=== PATIENT | female | born 1955 | race Caucasian/White ===

== ENCOUNTER 2017-03-16 21:44 | Emergency (ER) | payer OTHER ==
[~2017-03-16] VITALS: Ht 165.1 cm; Wt 190.5 kg
[~2017-03-16 21:44] MED LIST: ACID REDUCER20 MG PO; ALBUTEROL SULFAT4 M1 PO; ALTOPREV40 MG PO; AMITRIPTYLINE H25 MG PO; CALCITRIOL0.25 MCG PO; FISH OIL 1,0001 EAC4 PO; FOLIC ACID1 MG PO; GLYBURIDE5 MG PO; HYDRALAZINE HCL25 MG PO; HYDROCODON-ACE1 EACH PO; JANUVIA100 MG PO; LANTUS100 UNITS/ SUB-Q; LASIX40 MG PO; LEVOTHROID25 MCG PO; LEVOXYL200 MCG PO; NOVOLOG100 UNITS/ SUB-Q; NYSTATIN15 G1 TP; PULMICORT FLEX90 MCG IH; VENTOLIN HFA18 GM IH; VITAMIN D2400 UNIT PO
[2017-03-16] MEDS ORDERED: LIPITOR20 MG PO (22:52)
[2017-03-16] MEDS ORDERED: CLOBETASOL PROP15 GM TOP (22:55)
[2017-03-16] MEDS ORDERED: DULCOLAX10 MG PR (22:56)
[2017-03-16] MEDS ORDERED: LOVENOX40 MG/0.4 SUB-Q (22:57)
[2017-03-16] MEDS ORDERED: FLEET ENEMA133 ML PR (22:58)
[2017-03-16] MEDS ORDERED: FLUTICASONE PRO16 GM NAS (22:59)
[2017-03-16] MEDS ORDERED: GLUCAGON EMERGEN1 MG INJ (23:00)
[2017-03-16] MEDS ORDERED: HUMALOG KW200 UNIT/1 SUB-Q (23:04)
[2017-03-16] MEDS ORDERED: LEVOTHYROXINE200 MCG PO (23:07)
[2017-03-16] MEDS ORDERED: METOPROLOL SUCC50 MG PO (23:07)
[2017-03-16] MEDS ORDERED: MILK OF MA400 MG/5 M PO (23:09)
[2017-03-16] MEDS ORDERED: NORCO 5-325 TA1 EACH PO (23:09)
[2017-03-16] MEDS ORDERED: NOVOLOG100 UNIT/2 SUB-Q (23:10)
[2017-03-16] MEDS ORDERED: SPIRONOLACTONE50 MG PO (23:12)
--- NOTE | 2017-03-17 09:57 | NUR ---
Morbidly obese woman admitted for breathing. Non responsive. Sister, Brother-in-;aw and caregiver with her. Pt had lost in August and mother March 08. Prayer with her and with her family. She was transferred to [facility].
--- NOTE | 2017-03-18 18:45 | EKG ---
[facility] [address] [facility] [place], [place] [address] Signed Normal sinus rhythm Prolonged QT Abnormal ECG No previous ECGs available Confirmed by ROBERT POLANCO MD ([id number]) on 03/18/2017 6:45:33 PM Electronically Signed By: ROBERT POLANCO MD 03/18/17 1845 PATIENT NAME: XANDERELIANA Electrocardiogram DATE OF : 53 PHYSICIAN: ROBERT POLANCO MD REPORT #: [id number] REPORT IS CONFIDENTIAL AND NOT TO BE RELEASED WITHOUT AUTHORIZATION
== END 2017-03-17 01:25 | disposition short-term general hospital (02) ==
LOC: ED 21:44
DX: R09.2 Respiratory arrest (principal); E16.2 Hypoglycemia, unspecified; J45.909 Unspecified asthma, uncomplicated; E66.01 Morbid (severe) obesity due to excess calories; Z79.4 Long term (current) use of insulin; Z79.899 Other long term (current) drug therapy; Z88.1 Allergy status to other antibiotic agents; Z88.8 Allergy status to other drugs, medicaments and biological substances; Z87.891 Personal history of nicotine dependence
CPT/HCPCS: 31500; 31720; 36600; 71010; 80053; 82803; 83735; 83880; 84484; 85025; 85610; 85730; 93005; 93010; 94002; 94003; 94799; 96374; 96375; 99291; J0330; J2704; J2930

== ENCOUNTER 2019-06-15 07:10 | Day surgery (SDC) | payer MEDICARE, OTHER ==
[~2019-06-15] VITALS: Ht 165.1 cm; Wt 137.0 kg
[~2019-06-15 07:10] MED LIST changes: +AMLODIPINE BESY10 MG PO; +CLARITIN10 M2 PO; +CLOBETASOL PROP15 GM TOP; +DULCOLAX10 MG PR; +FERROUS SULFAT325 MG PO; +FLEET ENEMA133 ML PR; +FLUTICASONE PRO16 GM NAS; +FUROSEMIDE40 MG PO; +GLUCAGON EMERGEN1 MG INJ; +HUMALOG KW200 UNIT/1 SUB-Q; +HYDROCHLOROTHIA25 MG PO; +LEVOTHYROXINE200 MCG PO; +LIPITOR20 MG PO; +LOVENOX40 MG/0.4 SUB-Q; +METOPROLOL SUCC50 MG PO; +MILK OF MA400 MG/5 M PO; +NORCO 5-325 TA1 EACH PO; +NOVOLOG100 UNIT/2 SUB-Q; +POTASSIUM20 MEQ/15 PO; +SENOKOT8.6 MG PO; +SPIRONOLACTONE50 MG PO; +SSD25 GM TOP; +VENTOLIN HFA18 GM INH; +VICTOZA 2-0.6 MG/0.1 SUB-Q; +XARELTO20 MG PO
--- NOTE | 2019-06-15 08:09 | NUR ---
PT IS ALERT, SITTING UP IN BED. SHE HAS HAD PREVIOUS SCOPES, AND MENTIONED THAT PT WAS SCHEDULED FOR SCOPE 3 WKS AGO AND HAD TO RESCHEDULE DUE TO PREP NOT EFFECTIVE NEEDED. NO QUESTION, EXTENDED A BLESSING,WILL FOLLOW NEEDED
--- NOTE | 2019-06-15 08:51 | NUR ---
06/15/19 0851 YULIANA MAN 0845 PATIENT ARRIVED FROM ENDO ROOM WITH CPAP ON. PATIENT WAS AWAKE AND TALKING. CPAP WAS REMOVED PATIENT RR IS EVEN AND UNLABORED. PATIENT IS COMPLAINING OF DISCOMFORT IN HER ABDOMEN. PATIENT HAS BEEN BURPING AND HAS BEEN ENCOURAGED TO PASS GAS. STOMACH DOES FEEL SLIGHTLY DISTENDED. NO COMPLAINTS OF NAUSEA AT THIS TIME.
--- NOTE | 2019-06-15 15:36 | OR ---
[facility] [address] [place], [place] [address] Signed DATE OF OPERATION: 06/15/2019 SURGEON: Joel Harden MD PREOPERATIVE DIAGNOSES: 1. Personal history of multiple colonic polyps. 2. Tattoo at 40 cm. 3. Internal hemorrhoids. 4. Possible sigmoid diverticulosis. 5. Father, sister, and brother all with colonic polyps. 6. Maternal great-grandfather and first cousin with colon cancer. 7. Pelvic radiation for uterine cancer. POSTOPERATIVE DIAGNOSES: 1. 4 mm polyp at hepatic flexure (90 cm). 2. Indurated area at 20 cm (tattoo) with history of radiation. 3. Minimal internal hemorrhoids. PROCEDURE: Colonoscopy with hot biopsy and injection of tattoo at 20 cm. ESTIMATED BLOOD LOSS: None. INDICATIONS: Kiya is a 63-year-old morbidly obese patient with a height of 5 feet 5 inches and a weight of 307 pounds. Kiya has been to us several times now for history of her colonic polyps. She had a large polyp removed at 40 cm and there is a tattoo at that location. We know she has some internal hemorrhoids. She has a strong family history of colonic polyps and colon cancer. There was a question whether or not she has had sigmoid diverticulosis. We have not seen that recently. Since I have seen her last, she was diagnosed with uterine cancer. Due to her body mass index, she was not a candidate for surgery. She, therefore, had pelvic radiation and brachytherapy. In the office, I met with Kiya and her friend. In the meantime, her has . I gave her a pamphlet on colonoscopy. We reviewed the nature of the test along with its risks including, but not limited to, gas bloating, crampy abdominal pain, bleeding, perforation requiring surgery, and missed diagnosis. We also reviewed the written instructions for the bowel prep. We also reviewed her long list of medical issues and medications along with her high BMI. As always, we have Kiya undergo monitored anesthesia care. She does wear her CPAP at night. She did bring that with her today Electronically Signed By: JOEL HARDEN MD 06/15/19 1536 PATIENT NAME: KIYA TERRELL [facility] OPERATIVE REPORT DATE OF : 53 REPORT #: [id number] PHYSICIAN: JOEL HARDEN MD PCP: ZHANG GAFFNEY REPORT IS CONFIDENTIAL AND NOT TO BE RELEASED WITHOUT AUTHORIZATION [facility] [address] [place], [place] [address] Signed and we did utilize that during the procedure. She had expressed her understanding and wished to proceed. DESCRIPTION OF PROCEDURE: Kiya was taken into our endoscopy suite and placed in a left lateral decubitus position. She was given IV sedation with propofol per our nurse back tender fourdrinier. Her CPAP mask and machine were utilized during the case. A digital rectal exam was performed and this was unremarkable. The adult colonoscope was introduced and advanced all the way up to the cecum under direct visualization of the camera without difficulty. Her prep was average. There were a couple of areas of liquid particulate stool matter. Much of that was irrigated and suctioned out. The scope had been slowly withdrawn. We were in what we thought might be the hepatic flexure, although it could have been the splenic flexure as well. It was measuring 90 cm from the anal verge. There was just a tiny 4 mm polyp, which we removed with the help of hot biopsy forceps. We could easily see her tattoo back at 40 cm. No evidence of any recurrent polyp in that area. We did not see any diverticula on this occasion. At 20 cm, she has a somewhat flat, indurated, very woody area. It is reminiscent of radiation therapy. There was a polypoid area on the one side. We went ahead and took a hot biopsy of this entire area and cauterized it and then placed a tattoo just on the distal side of it. It measured 20 cm from the anal verge. This was in her sigmoid colon. The rectum itself was unremarkable. Upon retroflexion of the scope, she does have just minimal internal hemorrhoid tissue. The gas was then suctioned out and the colonoscope removed. Kiya tolerated the procedure quite well. RECOMMENDATIONS: I will see Kiya back in my office in 7 to 14 days to review her results. She will resume the Xarelto in 1 week. No aspirin or NSAIDs for 1 week. She can resume her other chronic medications today. Joel Harden MD ALB/MODL /[id number] cc: GURMEET Ortiz Electronically Signed By: JOEL HARDEN MD 06/15/19 1536 PATIENT NAME: KIYA TERRELL [facility] OPERATIVE REPORT DATE OF : 53 REPORT #: [id number] PHYSICIAN: JOEL HARDEN MD PCP: ZHAGN GAFFNEY REPORT IS CONFIDENTIAL AND NOT TO BE RELEASED WITHOUT AUTHORIZATION [facility] [address] [place], [place] [address] Signed Samson Heard MD [place] MD Rosi Mixon MD Fadi H Akoum, MD Copies: ZHANG GAFFNEY ANDREW L MD AKOUM, FADI H MD ~ Electronically Signed By: JOEL HARDEN MD 06/15/19 1536 PATIENT NAME: KIYA TERRELL OPERATIVE REPORT DATE OF : 53 REPORT #: [id number] PHYSICIAN: JOEL HARDEN MD PCP: ZHANG GAFFNEY REPORT IS CONFIDENTIAL AND NOT TO BE RELEASED WITHOUT AUTHORIZATION
--- NOTE | 2019-06-16 15:15 | PATH ---
[facility] [address] [place], [place] [address] Signed SPECIMEN(S): A HEPATIC FLEXURE POLYP SPECIMEN(S): B COLON POLYP AT 20CM SPECIMEN SOURCE: A. HEPATIC FLEXURE POLYP B. COLON POLYP AT 20CM CLINICAL HISTORY: History polyps, diverticulosis, pelvic radiation for uterine CA. Postop: Internal hemorrhoids, polyp. MICROSCOPIC DESCRIPTION: Histologic sections of all submitted blocks are examined by light microscopy. These findings, together with the gross examination, support the pathologic diagnosis. FINAL PATHOLOGIC DIAGNOSIS: A. Mucosa, hepatic flexure, biopsy: - Hyperplastic polyp. B. Mucosa, colon at 20 cm, biopsy: - Hyperplastic polyp. LJA:cml:C2NR GROSS DESCRIPTION: Two specimens are received in two containers, labeled "NG." A. The specimen, labeled "NG, hepatic flexure polyp," is received in formalin and consists of nine pink-mathews soft tissue fragment(s) that measure 0.1-0.3 cm in greatest dimension. The specimen is entirely submitted in cassette (A1). B. The specimen, labeled "NG, colon polyp at 20 cm," is received in formalin and consists of two pink-mathews soft tissue fragment(s) that measure 0.2-0.3 cm in greatest dimension. The specimen is entirely submitted in cassette (B1). JS (under the direct supervision of a pathologist) The Gross Description was prepared using a voice recognition system. The report was reviewed for accuracy; however, sound-alike word errors, addition and/or deletions may occur. If there is any question about this report, please contact Client Services. PERFORMING LABORATORY: The technical component was performed by [facility], [address] [place] [id number] ([employer]: Aminta Garsia MD; CLIA# [id number]). PATIENT NAME: ELIANA TERRELL PATHOLOGY DATE OF : 53 REPORT #: [id number] PHYSICIAN: [facility] PCP: ZHANG GAFFNEY REPORT IS CONFIDENTIAL AND NOT TO BE RELEASED WITHOUT AUTHORIZATION [facility] [address] [place], [place] [address] Signed Professional interpretation was performed by [facility], [address] [address] ([employer]: Barrie Garcia MD; CLIA# [id number]). Diagnostician: Barrie Garcia MD Pathologist Electronically Signed 06/16/2019 Copies: ~ PATIENT NAME: ELIANA TERRELL PATHOLOGY DATE OF : 53 REPORT #: [id number] PHYSICIAN: [facility] PCP: ZHANG GAFFNEY REPORT IS CONFIDENTIAL AND NOT TO BE RELEASED WITHOUT AUTHORIZATION
== END 2019-06-15 09:35 | disposition home or self-care (01) ==
LOC: OPS 07:10 → DS 07:10 → OPS 08:30
PROVIDERS: Colon & Rectal Surgery
PROC: 0DBE8ZZ Excision of Large Intestine, Via Natural or Artificial Opening Endoscopic (ICD-10-PCS; 2019-06-15)
PROC: 0DBL8ZZ Excision of Transverse Colon, Via Natural or Artificial Opening Endoscopic (ICD-10-PCS; principal; 2019-06-15 08:30)
DX: Z12.11 Encounter for screening for malignant neoplasm of colon (principal); K63.5 Polyp of colon; K64.8 Other hemorrhoids; I11.0 Hypertensive heart disease with heart failure; I50.9 Heart failure, unspecified; J45.909 Unspecified asthma, uncomplicated; G47.33 Obstructive sleep apnea (adult) (pediatric); E66.01 Morbid (severe) obesity due to excess calories; E78.5 Hyperlipidemia, unspecified; F17.210 Nicotine dependence, cigarettes, uncomplicated; Z86.010 Personal history of colon polyps; Z80.0 Family history of malignant neoplasm of digestive organs; Z83.71 Family history of colonic polyps; Z92.3 Personal history of irradiation; Z98.890 Other specified postprocedural states; Z79.82 Long term (current) use of aspirin; Z88.1 Allergy status to other antibiotic agents; Z79.899 Other long term (current) drug therapy; Z68.43 Body mass index [BMI] 50.0-59.9, adult
CPT/HCPCS: J2704; J7120

== ENCOUNTER 2021-02-21 12:13 | Emergency (ER) | payer MEDICARE, OTHER ==
[~2021-02-21] VITALS: Ht 165.1 cm; Wt 134.7 kg
--- NOTE | 2021-02-21 18:34 | EKG ---
[facility] [address] [facility] [place] [address] Signed Normal sinus rhythm Cannot rule out Anterior infarct (cited on or before 19-APR-2019) Abnormal ECG When compared with ECG of 19-APR-2019 11:41, Criteria for Inferior infarct are no longer present Questionable change in initial forces of Lateral leads Confirmed by SUNNI ELISE MD ([id number]) on 02/21/2021 6:33:46 PM Electronically Signed By: SUNNI ELISE MD 02/21/21 1834 PATIENT NAME: ELIANA TERRELLPATRICIA Electrocardiogram DATE OF : 53 PHYSICIAN: SUNNI ELISE MD REPORT #: [id number] REPORT IS CONFIDENTIAL AND NOT TO BE RELEASED WITHOUT AUTHORIZATION
== END 2021-02-22 01:54 | disposition home or self-care (01) ==
LOC: ED 12:13
DX: I11.0 Hypertensive heart disease with heart failure (principal); I50.30 Unspecified diastolic (congestive) heart failure; K21.9 Gastro-esophageal reflux disease without esophagitis; J45.909 Unspecified asthma, uncomplicated; E11.9 Type 2 diabetes mellitus without complications; E66.9 Obesity, unspecified; Z87.891 Personal history of nicotine dependence; Z88.6 Allergy status to analgesic agent; Z88.1 Allergy status to other antibiotic agents; Z88.8 Allergy status to other drugs, medicaments and biological substances; Z79.899 Other long term (current) drug therapy; Z79.4 Long term (current) use of insulin
CPT/HCPCS: 36600; 71045; 80053; 82803; 84484; 85007; 85025; 93005; 93010; 94640; 96374; 99285-25; J1940